=== PATIENT | male | born 1955 ===

== ENCOUNTER 2023-08-15 07:45 | Outpatient (CLI) | payer BC ==
--- NOTE | 2023-08-15 18:41 | XRAY Report ---
PROCEDURE: Pelvis 1 View INDICATIONS: RIGHT HIP PAIN TECHNIQUE: 1 view(s) of the pelvis acquired. COMPARISON: None. FINDINGS: Bones: No fractures or dislocations. No suspicious bony lesions. Moderate right hip joint space an d narrowing with marginal osteophytes. Mild left hip joint space narrowing Soft tissues: Visualized bowel gas pattern is normal. No suspicious soft tissue calcifications. IMPRESSION: Moderate right and mild left osteoarthritis Reviewed by: Pako Velasco MD on 08/15/2023 5:40 PM [facility] Approved by: Pako Velasco MD on 08/15/2023 5:40 PM [facility] Station ID: [id number]
== END 2023-08-15 23:59 | disposition home or self-care (01) ==
LOC: DI.WOS 07:45
PROVIDERS: ATTEND Physician Assistant Surgical
DX: M16.0 Bilateral primary osteoarthritis of hip (principal)